=== PATIENT | male | born 1990 | race Caucasian/White ===

== ENCOUNTER 2017-02-17 10:24 | Emergency (ER) | payer MEDICAID ==
[~2017-02-17] VITALS: Ht 167.6 cm; Wt 59.0 kg
[2017-02-17] MEDS ORDERED: PREDNISONE 20MG TABLET PO ONE (12:30)
[2017-02-17] MEDS ORDERED: ACETAMINOPHEN 325MG TABLET PO ONE (12:30)
[2017-02-17] MEDS ORDERED: ONDANSETRON HCL 4MG TABLET PO ONE (12:30)
[2017-02-17 14:03] VITALS: BP 118/70
== END 2017-02-17 14:04 | disposition home or self-care (01) ==
LOC: ER 12:48
DX: J02.9 Acute pharyngitis, unspecified (principal); R50.9 Fever, unspecified; R03.0 Elevated blood-pressure reading, without diagnosis of hypertension; F17.210 Nicotine dependence, cigarettes, uncomplicated; F10.10 Alcohol abuse, uncomplicated; F15.10 Other stimulant abuse, uncomplicated
CPT/HCPCS: 87070; 87430; 99284; J7512; Q0162

== ENCOUNTER 2018-12-12 08:54 | Emergency (ER) | payer MEDICAID ==
[~2018-12-12] VITALS: Ht 167.6 cm; Wt 80.0 kg
[2018-12-12 09:01] VITALS: BP 152/88
[2018-12-12] MEDS ORDERED: ACETAMINOPHEN 325MG TABLET PO ONE (11:45)
== END 2018-12-12 13:30 | disposition home or self-care (01) ==
LOC: ER 08:54
DX: S93.402A Sprain of unspecified ligament of left ankle, initial encounter (principal); W17.89XA Other fall from one level to another, initial encounter; Y93.39 Activity, other involving climbing, rappelling and jumping off; Y92.89 Other specified places as the place of occurrence of the external cause; F17.210 Nicotine dependence, cigarettes, uncomplicated; F15.10 Other stimulant abuse, uncomplicated
CPT/HCPCS: 73610; 73630; 99283

== ENCOUNTER 2022-08-13 21:37 | Emergency (ER) | payer MEDICAID ==
[~2022-08-13] VITALS: Ht 170.2 cm; Wt 85.0 kg
[2022-08-13 21:39] VITALS: BP 148/92
== END 2022-08-14 00:35 | disposition left against medical advice (07) ==
LOC: ER 21:37
DX: F16.10 Hallucinogen abuse, uncomplicated (principal); F15.10 Other stimulant abuse, uncomplicated
CPT/HCPCS: 99283